=== PATIENT | male | born 1965 | race Caucasian/White ===

== ENCOUNTER → 2017-10-22 | Outpatient (CLI) | payer BC ==
[2017-10-22 12:58] LABS: ALBUMIN 3.8 gm/dl (3.4-5.0); AST/SGOT 24 U/L (15-37); BLOOD UREA NITROGEN 21 mg/dl (7-18); CALCIUM 8.8 mg/dl (8.5-10.1); CARBON DIOXIDE 28 mmol/L (21-32); CREATININE 0.76 mg/dl (0.60-1.40); GLUCOSE 97 mg/dl (70-99); SODIUM 138 mmol/L (136-145)
[2017-10-22 13:04] LABS: ALKALINE PHOSPHATASE 66 U/L (45-117); ALT/SGPT 43 U/L (12-78); CHOLESTEROL 210 mg/dl (0-200); LDL CHOLESTEROL CALCULATED 146 mg/dl
== END | disposition home or self-care (01) ==
LOC: C.LAB1850 09:34
PROVIDERS: ATTEND Internal Medicine
DX: Z13.1 Encounter for screening for diabetes mellitus (principal); Z13.220 Encounter for screening for lipoid disorders; Z12.5 Encounter for screening for malignant neoplasm of prostate